=== PATIENT | female | born 1960 | race Caucasian/White ===

== ENCOUNTER → 2017-09-03 | Outpatient (CLI) | payer BC ==
[~2017-09-03] MED LIST: ALPR-475 PO; DICL75TA2 PO; HYDR-3241 PO; OMEP20TA62 PO
[2017-09-03 13:35] LABS: HEMOGLOBIN 13.5 g/dL (11.7-16.4); WHITE BLOOD COUNT 3.7 x10^3/uL (3.4-10)
[2017-09-03 13:35] LABS: PATH.CAST-FLAG NOT PRESENT; SPERM-FLAG NOT PRESENT; SRC-FLAG NOT PRESENT; XTAL-FLAG NOT PRESENT; YLC-FLAG NOT PRESENT
[2017-09-03 13:44] LABS: BLOOD UREA NITROGEN 7 mg/dL (7-18)
[2017-09-03 13:48] LABS: ASPARTATE AMINO TRANSFERASE 17 U/L (15-37)
[2017-09-03 14:06] LABS: HIV 1&2 ANTIBODY SCREEN Nonreactive (Nonreactive); HIV-1 p24 ANTIGEN Nonreactive (Nonreactive)
== END | disposition home or self-care (01) ==
LOC: STAR 12:14
PROVIDERS: ATTEND Orthopaedic Surgery
DX: M16.12 Unilateral primary osteoarthritis, left hip (principal); R79.89 Other specified abnormal findings of blood chemistry
CPT/HCPCS: 36415; 80053; 81001; 85025; 86703; 87081; 87086; 87899; 93005; G0435